=== PATIENT | female | born 1985 | race Caucasian/White ===

== ENCOUNTER 2017-05-20 14:33 | Outpatient (CLI) | payer BC ==
--- NOTE | 2017-05-20 17:04 | ULT ---
TRANSABDOMINAL AND TRANSVAGINAL PELVIC ULTRASOUND WITH DOPPLER: (Castelan scale, color flow, and spectral Doppler) Date: 05/20/17 HISTORY: Early . Exam requested for dating. FINDINGS: The uterus measures 7.7 x 5.4 x 5.0 cm. The right ovary measures 3.4 x 2.0 x 1.6 cm and demonstrates flow. The left ovary is not seen. A single live intrauterine gestation is seen with measurements corresponding to an estimated gestati onal age of 6 weeks/4 days and KATHARINA at 01/09/2018. The heart rate measures 120 beats/minute. Th e crown-rump length measures 0.5 cm, gestational sac diameter 1.96 cm, and yolk sac 0.33 cm. No subc horionic hemorrhage is seen. A small amount of free fluid is seen in the cul-de-sac. IMPRESSION: Single live intrauterine gestation of 6 weeks/4 days estimated gestational age and KATHARINA at 01/09/18. POS: [facility]
== END 2017-05-20 14:34 | disposition home or self-care (01) ==
LOC: SCSULT 14:33
PROVIDERS: ATTEND Family Medicine
DX: Z34.91 Encounter for supervision of normal pregnancy, unspecified, first trimester (principal); Z3A.01 Less than 8 weeks gestation of pregnancy
CPT/HCPCS: 76856

== ENCOUNTER 2017-12-29 00:41 | Inpatient (IN) | payer OTHER ==
[2017-12-29 01:12] VITALS: BMI 39.2
--- NOTE | 2017-12-29 01:35 | PDOC.LDHP ---
Labor and Delivery H&P HPI: Patient of Dr Conway CC: Contractions at 37 weeks 5 days Location: L&D This patient presents to L&D at 0120 with c/o contractions. She was scheduled by Dr Conway for primary CS due to suspected macrosomia, narrow pelvis and maternal short stature. No VB, No LOF. No HAs. She has GDM history...diet controlled. Review of systems: complete ROS completed and negative as per HPI Current gestational age (weeks): 37 (5 days) Due date: 01/09/18 Dating criteria: last menstrual period Grav: 2 Para: 0 Current complications: gestational diabetes (Diet controlled) Abnormal US findings: No Current medications: pre- vitamins Previous surgical history: other (Oral surgery) Social history: none - Physical Exam Vital signs reviewed and normal: yes General: NAD Heart: RRR Lungs: CTAB Abdomen: gravid FHT: category 1 [place] contractions every: every 5 minutes - Vaginal Exam cm dilated: 4 Effacement: 50% Station: -1 - Assessment L&D Assessment: scheduled primary section (Early term. Scheduled CS was on 01/09 for presumed macrosomia and short maternal stature with narropw pelvis (per Dr Conway). Patient prefers CS after Q&A as planned) - Plan Plan: admit to L&D, informed consent obtained, anesthesia consult for pain management, other (Prep for primary CSA. Ancef plus zmax for ABX coverage)
[2017-12-29] MEDS ORDERED: Bicitra 30 ML UDCUP PO SCH (02:00)
[2017-12-29] MEDS ORDERED: CEFAZOLIN/Water 2 GM/20 ML SYRINGE SLOW IVP SCH (02:00)
[2017-12-29] MEDS ORDERED: Azithromycin 500 MG in Sodium Chloride 0.9% 250 ML 250 ML IVPB SCH (02:00)
--- NOTE | 2017-12-29 02:04 | PDOC.EVN ---
Event Note - Event Note Event Note: Bedside glucose 82
[2017-12-29 02:17] LABS: #Eosinphils 0.1 thou/uL (0.0-0.7); #Lymphocytes 2.9 thou/uL (1.20-3.40); #Monocytes 0.8 thou/uL (0.11-0.59); %Basophils 0.3 % (0.0-1.0); %Eosinophils 0.8 % (0.0-10.0); %Lymphocytes 26.9 % (21.0-51.0); %Monocytes 7.1 % (0.0-10.0); Hemoglobin 12.3 g/dL (12.0-16.0); Mean Corpuscular HGB CONC 33.8 g/dL (32.0-36.0); Mean Corpuscular Hemoglobin 31.9 pg (27.0-31.0); Mean Corpuscular Volume 94.1 fl (81.0-99.0); Mean Platelet Volume 9.1 fL (7.4-10.4); Platelet Count 244 thou/uL (130-400); RBC Distribution Width 13.4 % (11.5-14.5); Red Blood Cell (RBC) Count 3.87 mill/uL (4.20-5.40); White Blood Cell (WBC) Count 10.7 thou/uL (4.8-10.8)
[2017-12-29] MEDS ORDERED: Ketorolac Tromethamine 30 MG/ML VIAL ONE (02:41)
[2017-12-29] MEDS ORDERED: Fentanyl 100 MCG/2 ML VIAL ONE (02:41)
[2017-12-29] MEDS ORDERED: Morphine PF 1 MG/ML SYR ONE (02:41)
[2017-12-29] MEDS ORDERED: Oxytocin 10 UNITS/ML VIAL ONE (02:41)
[2017-12-29] MEDS ORDERED: Dexamethasone 4 mg/ml Vial ONE (02:41)
[2017-12-29] MEDS ORDERED: Bupivacaine 0.75% W/DEXTROSE 8.25% 2 ML AMP ONE (02:45)
[2017-12-29 02:46] LABS: HBSAg Index 0.23 S/CO (0-0.99); HIV (1/2) Antibody/Antigen Non-Reactive (NonReactive); Hep B Surf Ag Non-Reactive S/CO (NonReactive)
[2017-12-29] MEDS ORDERED: Lidocaine 1% (PF) 30 ML VIAL ONE (02:48)
[2017-12-29] MEDS ORDERED: PHENYLEPHRINE-NS 100 MCG/ML 10 ML SYRINGE ONE ×2 (02:56→14:22)
[2017-12-29] MEDS ORDERED: Hydrocerin (Eucerin) Cream 120 gm Jar TOP PRN (03:06)
[2017-12-29] MEDS ORDERED: Naloxone HCl 0.4 mg/ml Vial IV PRN (03:06)
[2017-12-29] MEDS ORDERED: Promethazine HCl 25 MG SUPP PR PRN (03:06)
[2017-12-29] MEDS ORDERED: Promethazine HCl 25 MG/ML VIAL IM PRN (03:06)
[2017-12-29] MEDS ORDERED: diphenhydrAMINE 50 MG/ML VIAL IVP PRN (03:06)
[2017-12-29] MEDS ORDERED: Ondansetron HCl/PF 4 MG/2 ML Vial IVP PRN ×2 (03:06)
[2017-12-29] MEDS ORDERED: Naloxone HCl 0.4 mg/ml Vial IVP PRN ×2 (03:06)
[2017-12-29] MEDS ORDERED: Acetaminophen 1,000 MG in Premix Bag 1 BAG IVPB PRN (03:08)
[2017-12-29] MEDS ORDERED: Communication Order-Pharmacy FS SCH (03:15)
[2017-12-29] MEDS ORDERED: Ketorolac Tromethamine 30 MG/ML VIAL IVP SCH (03:15)
[2017-12-29] MEDS ORDERED: Adacel (T-DAP) 0.5 ML VIAL IM ONE (04:15)
[2017-12-29] MEDS ORDERED: Simethicone Chewable 80 MG TAB PO PRN (04:15)
[2017-12-29] MEDS ORDERED: Measles/Mumps/Rubella 10 MCG/0.5 ML VIAL SC ONE (04:15)
[2017-12-29] MEDS ORDERED: Varicella virus, LIVE 0.5 ML VIAL SC ONE (04:15)
[2017-12-29] MEDS ORDERED: Lanolin Ointment 7 GM TUBE TOP PRN (04:15)
[2017-12-29 05:37] LABS: Syphilis Antibody Nonreactive (Nonreactive); Syphilis Antibody Index 0.03 S/CO (<1.00 Non-Reactive)
--- NOTE | 2017-12-29 06:56 | OP ---
DATE OF PROCEDURE: 12/29/2017 PREOPERATIVE DIAGNOSES: 1. The patient in labor at term. 2. Gestational diabetes, diet controlled. 3. Suspected macrosomia with narrow pelvis. POSTOPERATIVE DIAGNOSES: 1. The patient and labor at term. 2. Gestational diabetes, diet controlled. 3. Suspected macrosomia with narrow pelvis. 4. Status post low transverse . PROCEDURE: Primary low transverse section via Pfannenstiel skin incision. SURGEON: Bryce Hall M.D. COUGAR HUNTER: Dr. Yvonne Aponte ANESTHESIA: Spinal anesthetic. ANTIBIOTICS: Ancef and Zithromax per protocol. IV FLUIDS: IV fluids about 1600 mL crystalloid. ESTIMATED BLOOD LOSS: About 600 mL. URINE OUTPUT: By Chamberlain (please see anesthesia record). COMPLICATIONS: None. COUNTS: Correct. FINDINGS: 1. No intra-abdominal pelvic adhesions. 2. No adnexal pathology seen after delivery. 3. Vigorous male with weight of 9 pounds 6 ounces. 4. Apgars 8 and 9. 5. Thin to moderate meconium noted at rupture of membranes. 6. NICU present for delivery. 7. resuscitation: None. 8. Hemostasis post-uterine repair. DISPOSITION: To recovery room in good and stable condition. PATHOLOGY: Placenta. Umbilical arterial blood gas was not sent as the baby was vigorous at delivery. INDICATIONS: This is a patient who was scheduled by Dr. Miller for primary for suspected m acrosomia, but the patient arrived in spontaneous labor prior to her date. TECHNIQUE: After proper informed consent was obtained, the patient was taken to the Labor and Delive operating room where she was placed under spinal anesthetic block. The patient's abdomen was prep ped and draped in the usual sterile fashion. A Pfannenstiel skin incision was then performed with th e scalpel. Bovie cautery was used to dissect the subcutaneous tissue down to the level of the fascia . Fascia was identified, cleaned off of any overlying fat and entered using Bovie cautery on cut mod e in the midline. Garcia scissors were used to dissect the fascia transversely without complication. Rectus muscles were then off the fascia both superiorly and inferiorly in the midline. Rec tus muscles were out laterally from the midline and the underlying peritoneum was entered b y blunt dissection. An Norris O retractor was placed into the wound for visualization of the abdomin al pelvic contents. A low transverse hysterotomy was performed without bladder flap creation. Thin to moderate meconium was noted at time of delivery and the fluid was noted to have thick vernix prese nt as well. The baby was in a cephalic presentation. Delivery was atraumatic without complication. The baby was vigorous at delivery. Cord was doubly clamped, transected, and the baby was handed to the NICU team who was present. The placenta was gently massaged out of the uterine cavity and it was intact. The uterus was repaired in situ with a double layer closure of the hysterotomy using #1 Marcus ryl. Hemostasis was confirmed and the adnexa were inspected and were confirmed to be normal. Next p arietal peritoneum and rectus muscles were reapproximated in the midline with a running nonlocking la shruthi of 2-0 chromic. For the hysterotomy is important to note that the first layer was running lockin g and the second layer of the uterine closure was a running nonlocking. After closure of the rectus muscles and after confirming no bleeding at the rectus sheath, the fascia was closed with 0 PDS x2 in a running nonlocking fashion. Subcutaneous tissue was copiously irrigated and subcutaneous tissue w as closed with 3-0 plain gut as a thickness was greater than 2 cm. The skin was closed with subcutic ular suture of 3-0 Vicryl with a top layer of Dermabond to act as a barrier. No complications were n oted and the patient was transported to recovery in good and stable condition.
[2017-12-29] MEDS: Ketorolac Tromethamine 30 MG/ML VIAL IVP SCH ×2 (08:55→15:01)
[2017-12-29] MEDS: Prenatal Vitamin 1 TAB PO SCH (08:56)
[2017-12-29] MEDS ORDERED: Ondansetron HCl/PF 4 MG/2 ML Vial ONE (14:22)
[2017-12-29] MEDS ORDERED: Dexamethasone 20 MG/5 ML VIAL ONE (14:22)
[2017-12-29] MEDS: Ibuprofen 800 MG TAB PO SCH (21:53)
[2017-12-30] MEDS: Ibuprofen 800 MG TAB PO SCH ×3 (06:12→22:25)
[2017-12-30 06:16] LABS: Mean Corpuscular HGB CONC 33.9 g/dL (32.0-36.0); Mean Corpuscular Volume 94.3 fl (81.0-99.0); Mean Platelet Volume 8.6 fL (7.4-10.4); Platelet Count 173 thou/uL (130-400); RBC Distribution Width 13.6 % (11.5-14.5); Red Blood Cell (RBC) Count 2.81 mill/uL (4.20-5.40); White Blood Cell (WBC) Count 11.8 thou/uL (4.8-10.8)
[2017-12-30] MEDS: HYDROcodone/Acetaminophen 5/325 mg Tablet PO PRN ×3 (08:28→22:18)
[2017-12-30] MEDS: Prenatal Vitamin 1 TAB PO SCH (08:28)
[2017-12-31] MEDS: Ibuprofen 800 MG TAB PO SCH ×3 (06:03→22:22)
[2017-12-31] MEDS: HYDROcodone/Acetaminophen 5/325 mg Tablet PO PRN ×2 (06:03→22:22)
--- NOTE | 2017-12-31 06:15 | PDOC.PP ---
Post Progress Note Post Day #: 1-2 Subjective: Do9ing well. Ambulating to the nursery well PO intake tolerated: yes Flatus: yes Ambulation: yes Vital Signs (12 hours) Temp Pulse Resp BP Pulse Ox 12/31/17 00:10 98.1 F 92 20 12/30/17 20:00 98.1 F 98 20 127/74 97 Weight Weight 201 lb - Physical Examination General: NAD Cardiovascular: no m/r/g Respiratory: clear to auscultation bilaterally Abdominal: + bowel sounds, lochia, no distention, appropriately TTP Extremities: negative homans (B) Skin: CS incision dry & intact Neurological: no gross focal deficits Psychiatric: A&Ox3, normal affect Result Diagrams: 12/30/17 05:15 Additional Labs: Post Labs Blood Type O POSITIVE 12/29/17 01:40 Hep Bs Antigen Non-Reactive S/CO (NonReactive) 12/29/17 01:40 - Assessment/Plan Doing well. I anticipate discharge home likely tomorrow. Routine postop care for now.
[2017-12-31] MEDS: Prenatal Vitamin 1 TAB PO SCH (09:33)
[2017-12-31] MEDS: Docusate 100 MG CAP PO SCH ×2 (09:34→22:22)
[2017-12-31] MEDS ORDERED: Ibuprofen 800 MG TAB PO SCH (22:00)
[2018-01-01] MEDS: HYDROcodone/Acetaminophen 5/325 mg Tablet PO PRN ×3 (04:45→22:19)
[2018-01-01] MEDS: Ibuprofen 800 MG TAB PO SCH ×3 (06:10→22:19)
--- NOTE | 2018-01-01 07:34 | PRG ---
DATE OF SERVICE: 01/01/2018 PRIMARY OB: Dr. Mehnaz Miller. SUBJECTIVE: The patient is a 32-year-old female postop day #3 status post a primary for see spected macrosomia. Today is postop day #3, the patient reports that she is tolerating p.o., voiding on her own, having decreased lochia. Baby is still in the NICU, trying to transition over to the [facility]. PHYSICAL EXAMINATION: VITAL SIGNS: Today, blood pressure is 117/79, temperature 97.7, pulse of 98, respiratory rate of 20. GENERAL: She appears to be in no acute distress. She is alert and oriented, cooperative and pleasan t to interact with. HEAD: Normocephalic, atraumatic. ABDOMEN: Appropriately tender. Her incision is clean, dry, and intact. EXTREMITIES: Nontender with some symmetrical edema. LABORATORY DATA: hemoglobin is 9 and hematocrit is 26.5, platelets 173,000. ASSESSMENT AND PLAN: The patient is postop day #3 status post a primary . Anticipate disch arge tomorrow. Tentative plans for baby to room in tonight in her room.
[2018-01-01] MEDS: Docusate 100 MG CAP PO SCH ×2 (09:04→22:19)
[2018-01-01] MEDS: Prenatal Vitamin 1 TAB PO SCH (09:04)
[2018-01-02] MEDS: Ibuprofen 800 MG TAB PO SCH ×2 (05:49→14:00)
[2018-01-02] MEDS ORDERED: diphenhydrAMINE 2% CREAM 28.4 GM TUBE TOP PRN (07:31)
[2018-01-02] MEDS ORDERED: Triamcinolone 0.5 % Ointment 15 Gram Tube TOP PRN (07:33)
--- NOTE | 2018-01-02 07:50 | PDOC.PP ---
Post Progress Note Post Day #: 4 Subjective: C/O rash on abdomen, No other concerns. Pumping/breast feeding. still in NICU due to hypoglycemia. PO intake tolerated: yes Flatus: yes Ambulation: yes Vital Signs (12 hours) Temp Pulse Resp BP 01/01/18 20:10 97.7 F 85 18 115/89 Weight Weight 201 lb - Physical Examination General: NAD Cardiovascular: RRR Respiratory: non-labored breathing Abdominal: no distention, appropriately TTP Deviation from normal: rash along abdomen c/w PUPPS Fundus firm & at: below umbilicus Extremities: negative homans (B) Skin: CS incision dry & intact Neurological: no gross focal deficits Psychiatric: A&Ox3 Result Diagrams: 12/30/17 05:15 Additional Labs: Post Labs Blood Type O POSITIVE 12/29/17 01:40 Hep Bs Antigen Non-Reactive S/CO (NonReactive) 12/29/17 01:40 (1) PUPP (pruritic urticarial papules and plaques of ) Code(s): O26.86 - PRURITIC URTICARIAL PAPULES AND PLAQUES OF (PUPPP) Status: Acute (2) Anemia Code(s): D64.9 - ANEMIA, UNSPECIFIED Status: Acute Qualifiers: Other causes of anemia: acute posthemorrhagic (3) delivery delivered Code(s): O82 - ENCOUNTER FOR DELIVERY WITHOUT INDICATION Status: Acute (4) Gestational diabetes Code(s): O24.419 - GESTATIONAL DIABETES MELLITUS IN , UNSP CONTROL Status: Resolved - Assessment/Plan PPD#4 VSSAF Meeting requirements for discharge. Plan for B&B due to in NICU. Topical tx and Benadryl PRN for PUPPS.
[2018-01-02 08:03] VITALS: BP 136/89; TEMP 97.8
[2018-01-02] MEDS: Docusate 100 MG CAP PO SCH (08:22)
[2018-01-02] MEDS: HYDROcodone/Acetaminophen 5/325 mg Tablet PO PRN (08:22)
[2018-01-02] MEDS: Prenatal Vitamin 1 TAB PO SCH (08:22)
[2018-01-02] MEDS ORDERED: Betamethasone Val 0.1% OINT 15 GM TUBE TOP PRN (16:22)
== END 2018-01-02 17:15 | disposition home or self-care (01) | DRG 766 ==
LOC: L&D/OP 00:41 → L&D 02:12 → 3SW 06:35
PROVIDERS: ADMIT Obstetrics & Gynecology; ATTEND Obstetrics & Gynecology
PROC: 10D00Z1 Extraction of Products of Conception, Low, Open Approach (ICD-10-PCS; principal; 2017-12-29)
DX: O24.420 Gestational diabetes mellitus in childbirth, diet controlled (principal); Z37.0 Single live birth; Z3A.37 37 weeks gestation of pregnancy; O77.0 Labor and delivery complicated by meconium in amniotic fluid; O99.02 Anemia complicating childbirth; D64.9 Anemia, unspecified; O26.86 Pruritic urticarial papules and plaques of pregnancy (PUPPP); O36.63X0 Maternal care for excessive fetal growth, third trimester, not applicable or unspecified; O33.1 Maternal care for disproportion due to generally contracted pelvis
CPT/HCPCS: 36415; 36416; 51702; 85025; 85027; 86780; 86850; 86900; 86901; 87340; 87389; 88307; 90707; 99285; J0456; J1100; J1885; J2001; J2274; J2405; J2550; J2590; J3010; J3490; J7050

== ENCOUNTER 2020-12-05 10:03 | Emergency (ER) | payer BC ==
[2020-12-05 10:55] LABS: #Basophils 0.1 thou/uL (0.0-0.2); #Eosinphils 0.2 thou/uL (0.0-0.7); #Lymphocytes 1.8 thou/uL (1.20-3.40); #Monocytes 0.4 thou/uL (0.11-0.59); #Neutrophils 6.6 thou/uL (1.40-6.50); %Basophils 0.7 % (0.0-1.0); %Eosinophils 2.6 % (0.0-10.0); %Monocytes 4.4 % (0.0-10.0); %Neutrophils 72.2 % (42.0-75.0); Hemoglobin 12.4 g/dL (12.0-16.0); Mean Corpuscular HGB CONC 31.7 g/dL (32.0-36.0); Mean Corpuscular Hemoglobin 30.5 pg (27.0-31.0); Mean Corpuscular Volume 96.4 fL (78.0-98.0); Mean Platelet Volume 6.9 fL (7.4-10.4); Platelet Count 258 thou/uL (130-400); RBC Distribution Width 11.8 % (11.5-14.5); Red Blood Cell (RBC) Count 4.08 mill/uL (4.20-5.40); White Blood Cell (WBC) Count 9.1 thou/uL (4.8-10.8)
[2020-12-05 11:18] LABS: ALT (SGPT) 12 U/L (8-55); AST (SGOT) 11 U/L (5-34); Albumin 3.8 g/dL (3.5-5.0); Alkaline Phosphatase 85 U/L (40-110); Anion Gap 13 mmol/L (10-20); BUN (Urea Nitrogen) 11 mg/dL (7.0-18.7); Bilirubin, Total 0.3 mg/dL (0.2-1.2); Calc. Creatinine Clearance 0 mL/min (70-130); Calcium 8.7 mg/dL (7.8-10.44); Carbon Dioxide 25 mmol/L (22-29); Chloride 103 mmol/L (98-107); Globulin 3.2 g/dL (2.4-3.5); Glucose 118 mg/dL (70-105); Potassium 3.8 mmol/L (3.5-5.1); Sodium 137 mmol/L (136-145)
[2020-12-05 12:12] LABS: Bilirubin Negative (Negative); Blood, Urine 3+ (Negative); Clarity Turbid (Clear); Glucose, Urine (Dipstick) Normal (Negative); Ketone, Urine Negative (Negative); Leukocyte 250 Leu/uL (Negative); Nitrite Negative (Negative); Protein, Urine (Dipstick) 20 mg/dL (Neg-Trace); RBC/HPF Greater than 50 HPF (0-3); Specific Gravity, Urine 1.014 (1.002-1.036); Urobilinogen Normal mg/dL (Less than 2)
[2020-12-05 12:13] LABS: Bacteria/HPF Rare-Few HPF (None Seen)
== END 2020-12-05 13:06 | disposition home or self-care (01) ==
LOC: ERS 10:03
DX: O20.9 Hemorrhage in early pregnancy, unspecified (principal); Z3A.01 Less than 8 weeks gestation of pregnancy
CPT/HCPCS: 36415; 76856; 80053; 81003; 81015; 84702; 85025; 86900; 86901